=== PATIENT | male | born 1955 | race African-American/Black ===

== ENCOUNTER 2021-07-02 13:53 | Emergency (ER) | payer SELFPAY ==
[2021-07-02] MEDS ORDERED: Morphine 4 MG/ML VIAL ONE ×2 (14:24→15:36)
[2021-07-02] MEDS ORDERED: Ondansetron PF 4 MG/2 ML Vial ONE (14:24)
[2021-07-02 14:52] LABS: Hemoglobin 11.5 g/dL (14.0-18.0); Lymphocytes 36 % (21-51); MDiff Complete? YES; Macrocytosis SLIGHT = 6-15 cells (100X) (0-5/hpf); Mean Corpuscular HGB CONC 32.5 g/dL (32.0-36.0); Mean Corpuscular Hemoglobin 36.1 pg (27.0-31.0); Mean Platelet Volume 6.6 fL (7.4-10.4); Monocytes 7 % (0-10); Neutrophil 57 % (42-75); Platelet Count 324 thou/uL (130-400); Platelet Morphology Comment Appears Adequate; RBC Distribution Width 15.7 % (11.5-14.5); Red Blood Cell (RBC) Count 3.19 mill/uL (4.70-6.10); White Blood Cell (WBC) Count 4.4 thou/uL (4.8-10.8)
[2021-07-02 14:57] LABS: ALT (SGPT) 63 U/L (8-55); AST (SGOT) 130 U/L (5-34); Albumin 3.2 g/dL (3.4-4.8); Alkaline Phosphatase 174 U/L (40-110); Anion Gap 11 mmol/L (10-20); BUN (Urea Nitrogen) 7 mg/dL (8.4-25.7); Calc. Creatinine Clearance 0 mL/min (70-130); Calcium 9.1 mg/dL (7.8-10.44); Carbon Dioxide 22 mmol/L (23-31); Chloride 104 mmol/L (98-107); Globulin 6.8 g/dL (2.4-3.5); Glucose 84 mg/dL (80-115); Lipase 43 U/L (8-78); Potassium 3.5 mmol/L (3.5-5.1); Sodium 133 mmol/L (136-145)
== END 2021-07-02 16:54 ==
LOC: ERS 13:53
DX: M79.81 Nontraumatic hematoma of soft tissue (principal)
CPT/HCPCS: 36415; 74176; 80053; 83605; 83690; 85025; 93005; 96374; 96375; 96376; J2270; J2405